=== PATIENT | male | born 1960 | race African-American/Black ===

== ENCOUNTER 2024-10-28 11:10 | Inpatient (IN) ==
--- NOTE | 2024-10-28 12:09 | DR.GENAD ---
HPI Time Seen Time Seen by Provider: 10/28/24 12:07 PCP Primary Care Physician: Dr.Angie Hunt HPI Comment HPI Comment: Patient is mentally delayed and has been having 3 days of diarrhea. Patient's risk control consultant states that he has not been urinating over the last day. Patient also has not been 1 take anything orally. Denies nausea or vomiting. Patient also has some ongoing low back pain. Complaint/Symptoms Chief Complaint:: pt's sister states that he has been having lower back pain, trouble urinating, and diarrhea for about three days now. she states that he has good appetite, and is not vomiting or having any nausea Self Treatment fo Chief Complaint: immodium yesterday and ibuprofen this morning COVID-19 Coronavirus risk:travel/contact w/high risk person: No Has patient experienced Coronavirus symptoms: No Source History Provided: Family Member Mode of Arrival Mode of Arrival: Ambulatory Timing Onset of Chief Complaint: 10/25/24 PMH PMH Past Medical History: Yes Past Medical History: Dyslipidemia Past Medical History Comment: epileptic, intellectual disability Past Surgical History: No Family History History of Family Medical Conditions: Yes Family Medical History: Cancer, [place] and Heart Failure Family Medical History Comment: bone cancer, glaucoma Social History Does patient currently use any type of tobacco product: No Have you used tobacco products in the last 12 months: No Type of Tobacco Use: None Does any household member use tobacco: No Alcohol Use: None Do you use any recreational Drugs:: No Lives With: Family Lives Where: Home Travel Risk Coronavirus risk:travel/contact w/high risk person: No Has patient experienced Coronavirus symptoms: No Infectious screening Have you had fever, night sweats or hemotysis?: No Have you traveled outside the country in the last 6 months?: No Isolation: Standard ROS Review of Systems Constitutional: No Symptoms Reported Eyes: No Symptoms Reported ENTM: No Symptoms Reported Respiratoy: No Symptoms Reported Cardiovascular: No Symptoms Reported Gastrointestinal/Abdominal: See HPI and Diarrhea; negative Abdominal Pain, Constipation, Nausea or Vomiting Genitourinary: No Symptoms Reported Neurological: No Symptoms Reported and Seizure (History of epilepsy but no recent seizures.); negative Numbness, Tingling, Weakness or Dizziness Musculoskeletal: See HPI and Back Pain Integumentary: No Symptoms Reported Hematologic/Lymphatic: No Symptoms Reported Endocrine: No Symptoms Reported Psychiatric: No Symptoms Reported All Other Systems: Reviewed and Negative PE Vital Signs Vitals: Vital Signs Temperature 98.6 F Pulse Rate 65 Respiratory Rate 18 Blood Pressure 159/81 O2 Sat by Pulse Oximetry 100 General Limitations: No Limitations General Appearance: Alert and In No Apparent Distress Head Head Exam: Normal Inspection Eyes Eye exam: Normal Appearance ENT ENT Exam: Normal Exam External Ear Exam: Normal External Inspection TM/Canal Exam: Bilateral: Normal Nose Exam: Normal Nose Exam Mouth Exam: Normal Inspection Throat Exam: Normal Inspection Neck Neck Exam: Normal Inspection Chest Chest Inspection: Normal Inspection Respiratory Respiratory Exam: Normal Lung Sounds Bilat Respiratory Exam: Bilateral: Clear to Auscultation Cardiovascular Cardiovascular Exam: Regular Rate and Normal Rhythm Abdominal Exam Abdominal Exam: Normal Inspection, Normal Bowel Sounds and Soft Extremities Extremities Exam: Normal Inspection Back Back Exam: Normal Inspection; negative (R) CVA Tenderness, (L) CVA Tenderness or Vertebral Tenderness Neurologic Neurological Exam: Alert and Oriented X3 Psychiatric Psychiatric Exam: Normal Affect and Normal Mood Skin Skin Exam: Warm, Dry, Intact and Normal Color COURSE Consultation Called: 17:25 Consultation Comments: Discussed case with Dr. Fair and he is agreeable to admission. Discussed low potassium and magnesium. We have been replacing in the ER. Patient has had 2 bowel movements of diarrhea since he has been here. [facility] Labs Reviewed 10/28/24 12:29 10/28/24 17:00 Laboratory: WBC 11.9 X10^3/uL (3.6-10.0) H 10/28/24 12:29 RBC 4.83 X10^6/uL (4.7-6.0) 10/28/24 12:29 Hgb 14.0 g/dL (13.5-18.0) 10/28/24 12:29 Hct 41.1 % (42.0-54.0) L 10/28/24 12:29 MCV 84.9 fL (80.0-100.0) 10/28/24 12:29 MCH 28.9 pg (27.0-34.0) 10/28/24 12:29 MCHC 34.1 g/dL (33.0-35.0) 10/28/24 12:29 RDW 13.9 % (11.6-16.5) 10/28/24 12:29 Plt Count 350 X10^3/uL (150.0-450.0) 10/28/24 12:29 MPV 7.1 fL (7.4-11.0) L 10/28/24 12:29 Neut % (Auto) 81.9 % (42.0-75.0) H 10/28/24 12:29 Lymph % (Auto) 8.3 % (21.0-51.0) L 10/28/24 12:29 [place] % (Auto) 9.6 % (0.0-13.0) 10/28/24 12:29 Eos % (Auto) 0.0 % (0.9-2.9) L 10/28/24 12:29 Baso % (Auto) 0.2 % (0.2-1.0) 10/28/24 12:29 Neut # (Auto) 9.8 x10^3/uL (2.2-4.8) H 10/28/24 12: Lymph # (Auto) 1.0 X10^3/uL (1.3-2.9) L 10/28/24 12: [place] # (Auto) 1.1 x10^3/uL (0.3-0.8) H 10/28/24 12:29 Eos # (Auto) 0.0 x10^3/uL (0.0-0.2) 10/28/24 12:29 Baso # (Auto) 0.0 X10^3/uL (0.0-0.1) 10/28/24 12: Absolute Nucleated RBC 0.1 /100WBC 10/28/24 12: Sodium 142 mmol/L (136-145) 10/28/24 12:29 Corrected Sodium 143 mmol/L (136-145) 10/28/24 12:29 Potassium 2.6 mmol/L (3.5-5.1) L* 10/28/24 17:00 Chloride 100 mmol/L (98-107) 10/28/24 12: Carbon Dioxide 32.1 mmol/L (21-32) H 10/28/24 12:29 BUN 5 mg/dL (7-18) L 10/28/24 12:29 Creatinine 0.85 mg/dL (0.70-1.30) 10/28/24 12:29 Est GFR (MDRD) Af Amer > 60 (>60) 10/28/24 12:29 Est GFR (MDRD) Non-Af > 60 (>60) 10/28/24 12:29 Glucose 154 mg/dL (65-99) H 10/28/24 12:29 Calcium 8.8 mg/dL (8.5-10.1) 10/28/24 12:29 Corrected Calcium 9.4 mg/dL (8.5-10.1) 10/28/24 12:29 Magnesium 1.8 mg/dL (2.0-2.9) L 10/28/24 12:29 Total Bilirubin 0.50 mg/dL (0.2-1.0) 10/28/24 12:29 AST 20 Units/L (15-37) 10/28/24 12:29 ALT 23 Units/L (12-78) 10/28/24 12:29 Alkaline Phosphatase 137 Units/L (46-116) H 10/28/24 12:29 Total Protein 8.4 g/dL (6.4-8.2) H 10/28/24 12:29 Albumin 3.2 g/dL (3.4-5.0) L 10/28/24 12:29 Globulin 5.2 g/dL (2.5-4.5) H 10/28/24 12:29 Albumin/Globulin Ratio 0.6 Ratio (1.1-2.1) L 10/28/24 12:29 Amylase 24 Units/L (25-115) L 10/28/24 12:29 Lipase 10 Units/L (16-77) L 10/28/24 12:29 Specimen Type Clean catch urine 10/28/24 14:42 Urine Color Yellow (YELLOW) 10/28/24 14:42 Urine Appearance Clear (CLEAR) 10/28/24 14:42 Urine pH 6.0 (5.0 - 8.0) 10/28/24 14:42 Ur Specific [place] 1.015 (1.000-1.030) 10/28/24 14:42 Urine Protein 1+ (NEGATIVE) 10/28/24 14:42 Urine Glucose (UA) 1+ (NEGATIVE) 10/28/24 14:42 Urine Ketones 1+ (NEGATIVE) 10/28/24 14:42 Urine Blood Negative (NEGATIVE) 10/28/24 14:42 Urine Nitrite Negative (NEGATIVE) 10/28/24 14:42 Urine Bilirubin Negative (NEGATIVE) 10/28/24 14:42 Urine Urobilinogen Normal (NORMAL) 10/28/24 14:42 Ur Leukocyte Esterase Negative (NEGATIVE) 10/28/24 14:42 Urine RBC None seen /HPF (0-3) 10/28/24 14:42 Urine WBC 3-5 /HPF (0-5) 10/28/24 14:42 Ur Squamous Epith Cells Rare /HPF (NEGATIVE) 10/28/24 14:42 Urine Bacteria Negative /HPF (NEGATIVE) 10/28/24 14:42 Urine Yeast Rare /HPF (NEGATIVE) 10/28/24 14:42 Ur Culture Indicated? No/not indicated 10/28/24 14:42 Opioid Opioid Risk Tool Age (Rajat box if 16-45): No History of Preadolescent Sexual Abuse: No Total: 0 Total Score Risk Category: Low Risk Copyright: Gomez predicting aberrant behaviors Discharge Plan Diagnosis Discharge Problem: Diarrhea, Hypokalemia, Hypomagnesemia Discharge Plan Patient Disposition: 09 ADMITTED INPATIENT Condition: Stable Prescriptions: No Action phenytoin sodium extended 100 mg capsule 1 tab PO QID simvastatin 40 mg tablet 1 tab PO QPM phenobarbital 60 mg tablet PO doxycycline monohydrate 100 mg capsule 1 cap PO BID levofloxacin 500 mg tablet 1 tab PO QDAY meclizine 25 mg tablet 25 mg PO TID PRN (Reason: dizziness or vertigo) Qty: 30 0RF Health Concerns: Post Hospitalization: new medications and changes needed to prevent readmission or further decline. Pt educated and given instructions on all concerns. Plan of Treatment: Continue with present treatment and follow up plan. Pt is to keep follow up appointment as instructed and take medications as ordered. Orders to Discharge Patient Discharge Orders: Transfer (Routine); Ordered 10/28/24 Ordered By: Iraj Candelario Follow ups/Referrals Follow ups/Referrals: JANNIE HUNT [Primary Care Provider] - 3 days Instructions Stand Alone Forms: Find Help Web Site, Post Hospital Follow Up Care
[2024-10-28] MEDS: NS 1,000 ML IV 1,000 ML IV ONE (12:34)
[2024-10-28] MEDS: MAGNESIUM SULFATE 1 GRAM/100 mL PREMIX 1 G/100 ML BAG IV ONE ×2 (12:35→17:32)
[2024-10-28 12:43] LABS: BASOPHILS % (AUTO) 0.2 % (0.2-1.0); HEMATOCRIT 41.1 % (42.0-54.0); LYMPHOCYTES % (AUTO) 8.3 % (21.0-51.0); MEAN CORPUSCULAR HEMOGLOBIN 28.9 pg (27.0-34.0); MEAN CORPUSCULAR HGB CONC 34.1 g/dL (33.0-35.0); MEAN CORPUSCULAR VOLUME 84.9 fL (80.0-100.0); MEAN PLATELET VOLUME 7.1 fL (7.4-11.0); MONOCYTES # (AUTO) 1.1 x10^3/uL (0.3-0.8); MONOCYTES % (AUTO) 9.6 % (0.0-13.0); NEUTROPHILS # (AUTO) 9.8 x10^3/uL (2.2-4.8); NEUTROPHILS % (AUTO) 81.9 % (42.0-75.0); PLATELET COUNT 350 X10^3/uL (150.0-450.0); RED BLOOD COUNT 4.83 X10^6/uL (4.7-6.0); RED CELL DISTRIBUTION WIDTH 13.9 % (11.6-16.5); WHITE BLOOD COUNT 11.9 X10^3/uL (3.6-10.0)
[2024-10-28 12:55] LABS: ALANINE AMINOTRANSFERASE 23 Units/L (12-78); ALBUMIN 3.2 g/dL (3.4-5.0); ALKALINE PHOSPHATASE 137 Units/L (46-116); AMYLASE 24 Units/L (25-115); ASPARTATE AMINO TRANSFERASE 20 Units/L (15-37); BLOOD UREA NITROGEN 5 mg/dL (7-18); CALCIUM 8.8 mg/dL (8.5-10.1); CARBON DIOXIDE 32.1 mmol/L (21-32); CHLORIDE 100 mmol/L (98-107); COR CA(FOR HYPOALB) 9.4 mg/dL (8.5-10.1); COR NA(FOR HYPERGLY) 143 mmol/L (136-145); CREATININE 0.85 mg/dL (0.70-1.30); GLUCOSE 154 mg/dL (65-99); LIPASE 10 Units/L (16-77); SODIUM 142 mmol/L (136-145); TOTAL PROTEIN 8.4 g/dL (6.4-8.2); eGFR NON BLACK RACES > 60 (>60)
[2024-10-28 12:56] LABS: POTASSIUM 2.5 mmol/L (3.5-5.1)
[2024-10-28] MEDS: K-DUR TAB 20 MEQ PO ONE ×2 (14:04→15:43)
[2024-10-28 14:49] LABS: BILIRUBIN,URINE NEGATIVE (NEGATIVE); BLOOD/HEMOGLOBIN,URINE NEGATIVE (NEGATIVE); GLUCOSE, URINE 1+ (NEGATIVE); KETONES,URINE 1+ (NEGATIVE); LEUKOCYTE ESTERASE ,URINE NEGATIVE (NEGATIVE); NITRITES,URINE NEGATIVE (NEGATIVE); PROTEIN,URINE 1+ (NEGATIVE); UROBILINOGEN,URINE NORMAL (NORMAL)
[2024-10-28 14:59] LABS: APPEARANCE,URINE CLEAR (CLEAR); BACTERIA,URINE NEGATIVE /HPF (NEGATIVE); COLOR,URINE YELLOW (YELLOW); RBC,URINE NONE SEEN /HPF (0-3); SQUAMOUS EPITHELIAL CELL,UR RARE /HPF (NEGATIVE); YEAST,URINE RARE /HPF (NEGATIVE)
--- NOTE | 2024-10-28 16:57 | EKG ---
Test Reason : low potassium Blood Pressure : */* mmHG Vent. Rate : 65 BPM Atrial Rate : 65 BPM P-R Int : 152 ms QRS Dur : 110 ms QT Int : 414 ms P-R-T Axes : 35 -51 12 degrees QTc Int : 430 ms Normal sinus rhythm Left anterior fascicular block T wave abnormality, consider anterolateral ischemia Abnormal ECG No previous ECGs available Confirmed by Arvind Frederick MD ([id number]) on 10/28/2024 6:18:50 PM Referred By: Confirmed By: Arvind Frederick MD
[2024-10-28] MEDS: POTASSIUM CHLORIDE LIQ PO ONE (17:32)
[2024-10-28] MEDS: IMODIUM CAP 2 MG PO ONE (18:06)
[2024-10-28] MEDS ORDERED: IMODIUM CAP 2 MG PO PRN (19:08)
[2024-10-28] MEDS ORDERED: CONSULT PHARMACY - POTASSIUM & MAGNESIUM XX SCH (19:08)
[2024-10-28] MEDS ORDERED: TYLENOL 325 MG TAB PO PRN (19:08)
[2024-10-28] MEDS: NS 1,000 ML IV 1,000 ML IV SCH (20:46)
[2024-10-28] MEDS: PHENOBARBITAL TAB 30 MG (32.4MG) PO SCH (20:47)
[2024-10-28] MEDS: ZOCOR TAB 40 MG PO SCH (20:47)
[2024-10-28] MEDS: DILANTIN INFATAB 50 MG PO SCH (21:40)
[2024-10-29 05:33] LABS: BASOPHILS % (AUTO) 0.1 % (0.2-1.0); HEMOGLOBIN 14.2 g/dL (13.5-18.0); LYMPHOCYTES # (AUTO) 0.6 X10^3/uL (1.3-2.9); LYMPHOCYTES % (AUTO) 3.4 % (21.0-51.0); MEAN CORPUSCULAR HEMOGLOBIN 28.9 pg (27.0-34.0); MEAN CORPUSCULAR HGB CONC 33.9 g/dL (33.0-35.0); MEAN CORPUSCULAR VOLUME 85.2 fL (80.0-100.0); MEAN PLATELET VOLUME 7.7 fL (7.4-11.0); MONOCYTES # (AUTO) 1.7 x10^3/uL (0.3-0.8); MONOCYTES % (AUTO) 9.2 % (0.0-13.0); NEUTROPHILS # (AUTO) 16.4 x10^3/uL (2.2-4.8); NEUTROPHILS % (AUTO) 87.3 % (42.0-75.0); PLATELET COUNT 342 X10^3/uL (150.0-450.0); RED BLOOD COUNT 4.93 X10^6/uL (4.7-6.0); RED CELL DISTRIBUTION WIDTH 14.3 % (11.6-16.5); WHITE BLOOD COUNT 18.8 X10^3/uL (3.6-10.0)
[2024-10-29 05:55] LABS: ALANINE AMINOTRANSFERASE 15 Units/L (12-78); ALKALINE PHOSPHATASE 127 Units/L (46-116); ASPARTATE AMINO TRANSFERASE 18 Units/L (15-37); BLOOD UREA NITROGEN 5 mg/dL (7-18); CALCIUM 8.9 mg/dL (8.5-10.1); CARBON DIOXIDE 31.3 mmol/L (21-32); CHLORIDE 101 mmol/L (98-107); COR CA(FOR HYPOALB) 9.7 mg/dL (8.5-10.1); COR NA(FOR HYPERGLY) 142 mmol/L (136-145); CREATININE 0.64 mg/dL (0.70-1.30); GLUCOSE 144 mg/dL (65-99); MAGNESIUM 2.2 mg/dL (2.0-2.9); POTASSIUM 3.2 mmol/L (3.5-5.1); SODIUM 141 mmol/L (136-145); TOTAL PROTEIN 7.8 g/dL (6.4-8.2); eGFR NON BLACK RACES > 60 (>60)
[2024-10-29] MEDS ORDERED: CONSULT PHARMACY - POTASSIUM & MAGNESIUM XX SCH (07:00)
--- NOTE | 2024-10-29 08:25 | EKG ---
Test Reason : tachycardia Blood Pressure : */* mmHG Vent. Rate : 128 BPM Atrial Rate : 128 BPM P-R Int : 148 ms QRS Dur : 92 ms QT Int : 280 ms P-R-T Axes : 34 -67 114 degrees QTc Int : 408 ms Sinus tachycardia Possible Left atrial enlargement Left axis deviation Cannot rule out Anterior infarct , age undetermined Abnormal ECG When compared with ECG of 28-OCT-2024 16:54, Vent. rate has increased BY [address] now depressed in Inferior leads Nonspecific T wave abnormality, improved in Inferior leads Nonspecific T wave abnormality has replaced inverted T waves in Lateral leads Confirmed by Yefri Davis ([id number]) on 10/29/2024 6:30:08 PM Referred By: Confirmed By: Yefri Davis
--- NOTE | 2024-10-29 08:26 | EKG ---
Test Reason : abnormal telemetry Blood Pressure : */* mmHG Vent. Rate : 123 BPM Atrial Rate : 123 BPM P-R Int : 148 ms QRS Dur : 92 ms QT Int : 312 ms P-R-T Axes : 32 -66 81 degrees QTc Int : 446 ms Sinus tachycardia Possible Left atrial enlargement Left axis deviation Anterior infarct , age undetermined Abnormal ECG When compared with ECG of 28-OCT-2024 16:54, Vent. rate has increased BY 58 BPM Nonspecific T wave abnormality no longer evident in Inferior leads Confirmed by Yefri Davis ([id number]) on 10/29/2024 6:30:22 PM Referred By: Confirmed By: Yefri Davis
[2024-10-29] MEDS: NS 250 ML IV 250 ML IV ONE (09:11)
[2024-10-29] MEDS: MAGNESIUM SULFATE 1 GRAM/100 mL PREMIX 1 G/100 ML BAG IV ONE (09:11)
[2024-10-29] MEDS: IMODIUM CAP 2 MG PO ONE (09:11)
[2024-10-29] MEDS: ROCEPHIN VIAL 1 GRAM 1 G in NS 100 ML IV 100 ML IV SCH (09:11)
[2024-10-29] MEDS: K-DUR TAB 20 MEQ PO ONE (09:11)
[2024-10-29] MEDS: DILANTIN CAP 100 MG EXT REL PO SCH ×2 (09:12→20:34)
[2024-10-29] MEDS: K-DUR TAB 20 MEQ PO SCH (09:13)
[2024-10-29] MEDS: VSL#3 PROBIOTIC CAP 112.5 B PO SCH (09:13)
[2024-10-29] MEDS: OMNIPAQUE 350 mg/mL 100 mL BTL 100 ML ONE (09:35)
[2024-10-29] MEDS: NS 1,000 ML IV 1,000 ML IV ONE ×2 (10:42→19:25)
[2024-10-29] MEDS: VANCOMYCIN HCL 1 G in D5W 250 ML IV 250 ML IV SCH (10:54)
[2024-10-29] MEDS ORDERED: CONSULT PHARMACY - ANTIBIOTIC XX SCH (11:00)
[2024-10-29] MEDS: ZOSYN VIAL 3.375 GRAMS 3.375 G in NS 100 ML IV 100 ML IV SCH (12:03)
[2024-10-29] MEDS: NS 250 ML IV 25 ML IV PRN (12:16)
--- NOTE | 2024-10-29 14:35 | CT ---
EXAM: CT ABDOMEN AND PELVIS WITH CONTRAST HISTORY: ELEVATED WBC, LEFT CVA TENDERNESS; COMPARISON: None. TECHNIQUE: Axial CT images were obtained through the abdomen and pelvis after the intravenous administration of contrast. Coronal reformatted images were included. Informed written consent was obtained prior to contrast administration. All CT scans at this facility use dose modulation, iterative reconstruction, and/or weight based dosi ng when appropriate to reduce radiation dose to as low as reasonably achievable. FINDINGS: LOWER THORAX: Areas of bibasilar airspace disease are present. ABDOMEN: LIVER: Within normal limits. GALLBLADDER: Within normal limits. SPLEEN: Within normal limits. PANCREAS: Within normal limits. KIDNEYS: Within normal limits. ADRENAL GLANDS: Within normal limits. GI TRACT: Colon is abnormal demonstrating severe distention. Sigmoid colon is completely decompresse d. Configuration of the sigmoid colon suggest the presence of sigmoid volvulus. LYMPH NODES: No abnormally enlarged nodes. VESSELS: Within normal limits. PERITONEUM / RETROPERITONEUM: No free gas. PELVIS: BLADDER: Within normal limits. GENITALS: Within normal limits. BONES: Within normal limits. IMPRESSION: Colonic obstruction. Severe distention of the entirety of the colon noted with the exception of the sigmoid colon which is decompressed. Swirling in the adjacent mesentery is consistent with a sigmoid volvulus. THIS IS AN ELECTRONICALLY VERIFIED FINAL REPORT 10/29/2024 2:32 PM - Electronically signed by Giovanny Hillman MD
--- NOTE | 2024-10-29 15:06 | DR.H&P ---
H&P History & Physical for Day of: H&P Date: 10/29/24 Chief Complaint Chief Complaint: Back pain History of Present Illness History of Present Illness: Patient presented to the ER from home with worsening back pain, diarrhea, and weakness. In the ER he was found to be dehydrated with electrolyte abnormalities. He was admitted for rehydration. Overnight, his telemetry showed a variety of tachyarrhythmias. Patient was as ymptomatic each time. A.m. labs show worsening leukocytosis with improved BOBBY. Patient continues to report left CVA-region tenderness. Reports his diarrhea is improved. Sister and patient report his belly seems distended but less tender. No nausea or vomiting. ROS: 12 point ROS negative except per above. PE: WD, WN male in no acute distress. Head NCAT. Hearing intact conversation. Extraocular notes grossly normal. Heart regular rate and rhythm. Lungs are clear bilaterally. Belly is distended but nontender with hypoactive bowel sounds and tympanic to percussion. Does have left CVA tenderness that is not worse with percussion. No edema of the extremities. Mood is blunted affect is guarded. Past Medical History Past Medical History: Dyslipidemia Family History Family Medical History: Cancer, [place] and Heart Failure Social History Does patient currently use any type of tobacco product: No Have you used tobacco products in the last 12 months: No Type of Tobacco Use: None Does any household member use tobacco: No Alcohol Use: None Drug Use: None Medications Home Medications: Home Medications Medication Instructions Recorded Confirmed Type phenobarbital 60 mg tablet 1 tab PO BID 11/29/22 10/28/24 History phenytoin sodium extended 100 mg 2 tab PO QAM 11/29/22 10/28/24 History capsule simvastatin 40 mg tablet 1 tab PO QPM 11/29/22 10/28/24 History phenytoin sodium extended 100 mg 100 mg PO HS 10/28/24 10/28/24 History capsule Allergies Allergies Allergy/AdvReac Type Severity Reaction Status Date / Time codeine AdvReac Verified 11/25/22 09:12 Labs 10/29/24 04:35 10/29/24 04:35 Labs: Laboratory WBC 18.8 X10^3/uL (3.6-10.0) H 10/29/24 04:35 RBC 4.93 X10^6/uL (4.7-6.0) 10/29/24 04:35 Hgb 14.2 g/dL (13.5-18.0) 10/29/24 04:35 Hct 42.0 % (42.0-54.0) 10/29/24 04:35 MCV 85.2 fL (80.0-100.0) 10/29/24 04:35 MCH 28.9 pg (27.0-34.0) 10/29/24 04:35 MCHC 33.9 g/dL (33.0-35.0) 10/29/24 04:35 RDW 14.3 % (11.6-16.5) 10/29/24 04:35 Plt Count 342 X10^3/uL (150.0-450.0) 10/29/24 04:35 MPV 7.7 fL (7.4-11.0) 10/29/24 04:35 Neut % (Auto) 87.3 % (42.0-75.0) H 10/29/24 04:35 Lymph % (Auto) 3.4 % (21.0-51.0) L 10/29/24 04:35 [place] % (Auto) 9.2 % (0.0-13.0) 10/29/24 04:35 Eos % (Auto) 0.0 % (0.9-2.9) L 10/29/24 04:35 Baso % (Auto) 0.1 % (0.2-1.0) L 10/29/24 04:35 Neut # (Auto) 16.4 x10^3/uL (2.2-4.8) H 10/29/24 04:35 Lymph # (Auto) 0.6 X10^3/uL (1.3-2.9) L 10/29/24 04:35 [place] # (Auto) 1.7 x10^3/uL (0.3-0.8) H 10/29/24 04:35 Eos # (Auto) 0.0 x10^3/uL (0.0-0.2) 10/29/24 04:35 Baso # (Auto) 0.0 X10^3/uL (0.0-0.1) 10/29/24 04:35 Absolute Nucleated RBC 0.0 /100WBC 10/29/24 04:35 Sodium 141 mmol/L (136-145) 10/29/24 04:35 Corrected Sodium 142 mmol/L (136-145) 10/29/24 04:35 Potassium 3.2 mmol/L (3.5-5.1) L 10/29/24 04:35 Chloride 101 mmol/L (98-107) 10/29/24 04:35 Carbon Dioxide 31.3 mmol/L (21-32) 10/29/24 04:35 BUN 5 mg/dL (7-18) L 10/29/24 04:35 Creatinine 0.64 mg/dL (0.70-1.30) L 10/29/24 04:35 Est GFR (MDRD) Af Amer > 60 (>60) 10/29/24 04:35 Est GFR (MDRD) Non-Af > 60 (>60) 10/29/24 04:35 Glucose 144 mg/dL (65-99) H 10/29/24 04:35 Calcium 8.9 mg/dL (8.5-10.1) 10/29/24 04:35 Corrected Calcium 9.7 mg/dL (8.5-10.1) 10/29/24 04:35 Magnesium 2.2 mg/dL (2.0-2.9) 10/29/24 04:35 Total Bilirubin 1.30 mg/dL (0.2-1.0) H 10/29/24 04:35 AST 18 Units/L (15-37) 10/29/24 04:35 ALT 15 Units/L (12-78) 10/29/24 04:35 Alkaline Phosphatase 127 Units/L (46-116) H 10/29/24 04:35 Total Protein 7.8 g/dL (6.4-8.2) 10/29/24 04:35 Albumin 3.0 g/dL (3.4-5.0) L 10/29/24 04:35 Globulin 4.8 g/dL (2.5-4.5) H 10/29/24 04:35 Albumin/Globulin Ratio 0.6 Ratio (1.1-2.1) L 10/29/24 04:35 Amylase 24 Units/L (25-115) L 10/28/24 12:29 Lipase 10 Units/L (16-77) L 10/28/24 12:29 Specimen Type Clean catch urine 10/28/24 14:42 Urine Color Yellow (YELLOW) 10/28/24 14:42 Urine Appearance Clear (CLEAR) 10/28/24 14:42 Urine pH 6.0 (5.0 - 8.0) 10/28/24 14:42 Ur Specific [place] 1.015 (1.000-1.030) 10/28/24 14:42 Urine Protein 1+ (NEGATIVE) 10/28/24 14:42 Urine Glucose (UA) 1+ (NEGATIVE) 10/28/24 14:42 Urine Ketones 1+ (NEGATIVE) 10/28/24 14:42 Urine Blood Negative (NEGATIVE) 10/28/24 14:42 Urine Nitrite Negative (NEGATIVE) 10/28/24 14:42 Urine Bilirubin Negative (NEGATIVE) 10/28/24 14:42 Urine Urobilinogen Normal (NORMAL) 10/28/24 14:42 Ur Leukocyte Esterase Negative (NEGATIVE) 10/28/24 14:42 Urine RBC None seen /HPF (0-3) 10/28/24 14:42 Urine WBC 3-5 /HPF (0-5) 10/28/24 14:42 Ur Squamous Epith Cells Rare /HPF (NEGATIVE) 10/28/24 14:42 Urine Bacteria Negative /HPF (NEGATIVE) 10/28/24 14:42 Urine Yeast Rare /HPF (NEGATIVE) 10/28/24 14:42 Ur Culture Indicated? No/not indicated 10/28/24 14:42 Physical Exam Vital Signs: Vital Signs Temperature 98.3 F Temperature 98.2 F Pulse Rate [Right] 86 Pulse Rate [Right] 61 Respiratory Rate 18 Respiratory Rate 20 Blood Pressure [Right Arm] 141/76 Blood Pressure [Right Arm] 160/77 O2 Sat by Pulse Oximetry 98 O2 Sat by Pulse Oximetry 98 Assessment/Plan (1) Severe sepsis: Narrative Support Text: Suspect abdominal source. Has tachycardia, leukocytosis, BOBBY, and lactic acidosis. Start Vanco and Zosyn today. Status: Acute (2) Costovertebral angle tenderness: Narrative Support Text: CT abdomen and pelvis with p.o. and IV contrast today. Urine looked clear so I doubt it is a kidney stone or UTI Status: Acute (3) Acute kidney failure: Qualifiers: Acute renal failure type: unspecified Qualified Code(s): N17.9 - Acute kidney failure, unspecified Narrative Support Text: Improving. Continue IV fluids. Status: Acute (4) Diarrhea: Qualifiers: Diarrhea type: presumed infectious Qualified Code(s): R19.7 - Diarrhea, unspecified Narrative Support Text: Suspect infectious but uncertain etiology. Seems to be improving. Continue hydration Status: Acute (5) Hypokalemia: Narrative Support Text: Due to diarrhea with BOBBY. Replace as needed. Status: Acute (6) Hypomagnesemia: Narrative Support Text: See above. Status: Acute
[2024-10-29] MEDS ORDERED: K-RIDER 10 MEQ/100 ML WATER 10 MEQ/100 ML BAG IV ONE (20:00)
[2024-10-29] MEDS: NS 1,000 ML IV 1,000 ML IV SCH (20:25)
[2024-10-29] MEDS: HIBICLENS WASH EXT ONE (21:26)
[2024-10-29] MEDS: K-RIDER 10 MEQ/100 ML WATER 10 MEQ/100 ML BAG IV ONE (21:30)
--- NOTE | 2024-10-29 21:38 | DR.CONSULT ---
CONSULT Consultation for Day of: Date: 10/29/24 Chief Complaint Chief Complaint: Abdominal pain Allergies Allergies Allergy/AdvReac Type Severity Reaction Status Date / Time codeine AdvReac Verified 11/25/22 09:12 History of Present Illness History of Present Illness: 64 yo male with historyn of developmental delay and presented to ER with diarrhea and back and abdominal pain. Admitted to medicine service. Noted to have hypokalemia and abdominal distention and dehydration. Had CT of abdomen and pelvis with findings consistent with distende colon with sigmoid volvulus and obstruction. History obtained from his sister. History of seizures . Elevatd lactic acid . Past Medical History Past Medical History: Dyslipidemia Family History Family Medical History: Cancer, [place] and Heart Failure Social History Does patient currently use any type of tobacco product: No Have you used tobacco products in the last 12 months: No Type of Tobacco Use: None Does any household member use tobacco: No Alcohol Use: None Drug Use: None Medications Home Medications: codeine Adverse Reaction (Verified 11/25/22 09:12) CONTINUE taking the following medications phenytoin sodium extended 100 mg capsule 100 mg PO HS 10/28/24 [History] Review of Systems Constitutional: See HPI Eyes: No Symptoms Reported ENT: No Symptoms Reported Respiratory: No Symptoms Reported Cardiovascular: See HPI Gastrointestinal: See HPI Genitourinary: No Symptoms Reported Musculoskeletal: No Symptoms Reported Skin: No Symptoms Reported Neurological: No Symptoms Reported Physical Exam Vital Signs: Vital Signs Temperature 99.3 F Temperature 98.3 F Pulse Rate [Right] 130 Pulse Rate [Right] 126 Respiratory Rate 20 Respiratory Rate 19 Blood Pressure [Right Arm] 109/72 Blood Pressure [Right Arm] 120/81 O2 Sat by Pulse Oximetry 95 O2 Sat by Pulse Oximetry 98 Oriented: Person; negative Time or Place Eyes: Normal Ear: Normal Nose: Normal Throat: Normal Respiratory: Clear Throughout Cardiovascular: Tachycardia : Normal Auscultation: Bowel Sounds: Decreased Palpation: Other (distended) Tenderness: Normal Skin: Normal Musculoskeletal: Normal Psychiatric: Other (does not give a history, ) Mood Description: Anxious Affect: Depressed and Quiet Speech Pattern: Unclear Plan (1) Severe sepsis: Status: Acute (2) Costovertebral angle tenderness: Status: Acute (3) Acute kidney failure: Status: Acute Qualifiers: Acute renal failure type: unspecified Qualified Code(s): N17.9 - Acute kidney failure, unspecified (4) Diarrhea: Status: Acute Qualifiers: Diarrhea type: presumed infectious Qualified Code(s): R19.7 - Diarrhea, unspecified (5) Hypokalemia: Status: Acute (6) Hypomagnesemia: Status: Acute (7) Sigmoid volvulus: Status: Acute Plan: NG tube , IV hydration plan lapaoscopy and sigmoid resection and end colostomy.
--- NOTE | 2024-10-29 22:18 | RAD ---
EXAM: CHEST, 1 VIEW HISTORY: ng tube placement @ 2150; COMPARISON: No relevant prior studies available. TECHNIQUE: AP supine projection, 2 images FINDINGS: Esophagogastric tube tip is in the body of the stomach. Nonspecific moderate to severe gaseous distention of the imaged bowel. IMPRESSION: Esophagogastric tube tip is in the body of the stomach. THIS IS AN ELECTRONICALLY VERIFIED FINAL REPORT 10/29/2024 10:14 PM - Electronically signed by Ian Aguilar MD
--- NOTE | 2024-10-29 23:29 | RAD ---
PROCEDURE: Chest X-ray 1 View.HISTORY: NG tube placement.TECHNIQUE: AP portable view.COMPARISON: 11/23/2022.TECHNICAL QUALITY: Satisfactory.FINDINGS:NG tube tip projected over the body of the stomach in good position. Probable right internal jugular central venous line with the tip near the superior cavoatrial junction.Normal-sized heart.Mediastinum and hilar regions show no masses or lymphadenopathy.Normal central vascularity.No pulmonary consolidation, masses, pleural fluid, or pneumothorax.No acute bony abnormality.Dilated bowel loops with air visualized upper abdomen could be related to ileus or obstruction.IMPRESSION:1. No evidence of active cardiopulmonary disease.2. Good NG tube placement.3. Dilated bowel loops visualized upper abdomen could be related to ileus or obstruction.THIS IS AN ELECTRONICALLY VERIFIED FINAL [id number]/29/2024 11:25 PM - Electronically signed by Christopher Garcia MD
[2024-10-30] MEDS: K-RIDER 10 MEQ/100 ML WATER 10 MEQ/100 ML BAG IV ONE ×3 (00:07→06:03)
[2024-10-30 06:02] LABS: ALANINE AMINOTRANSFERASE 18 Units/L (12-78); ALBUMIN 2.5 g/dL (3.4-5.0); ALKALINE PHOSPHATASE 101 Units/L (46-116); ASPARTATE AMINO TRANSFERASE 25 Units/L (15-37); BLOOD UREA NITROGEN 11 mg/dL (7-18); CALCIUM 8.5 mg/dL (8.5-10.1); CARBON DIOXIDE 23.8 mmol/L (21-32); CHLORIDE 99 mmol/L (98-107); COR CA(FOR HYPOALB) 9.7 mg/dL (8.5-10.1); COR NA(FOR HYPERGLY) 133 mmol/L (136-145); CREATININE 0.89 mg/dL (0.70-1.30); GLUCOSE 154 mg/dL (65-99); POTASSIUM 4.1 mmol/L (3.5-5.1); SODIUM 132 mmol/L (136-145); TOTAL PROTEIN 7.3 g/dL (6.4-8.2); eGFR NON BLACK RACES > 60 (>60)
[2024-10-30 06:07] LABS: BASOPHILS % (AUTO) 0.1 % (0.2-1.0); HEMATOCRIT 42.7 % (42.0-54.0); HEMOGLOBIN 14.2 g/dL (13.5-18.0); LYMPHOCYTES # (AUTO) 1.1 X10^3/uL (1.3-2.9); LYMPHOCYTES % (AUTO) 4.4 % (21.0-51.0); MEAN CORPUSCULAR HEMOGLOBIN 28.8 pg (27.0-34.0); MEAN CORPUSCULAR HGB CONC 33.2 g/dL (33.0-35.0); MEAN CORPUSCULAR VOLUME 86.6 fL (80.0-100.0); MONOCYTES # (AUTO) 2.2 x10^3/uL (0.3-0.8); MONOCYTES % (AUTO) 8.9 % (0.0-13.0); NEUTROPHILS # (AUTO) 21.6 x10^3/uL (2.2-4.8); NEUTROPHILS % (AUTO) 86.6 % (42.0-75.0); PLATELET COUNT 338 X10^3/uL (150.0-450.0); RED BLOOD COUNT 4.93 X10^6/uL (4.7-6.0); RED CELL DISTRIBUTION WIDTH 14.4 % (11.6-16.5)
[2024-10-30 06:37] LABS: BAND NEUTROPHILS % 10 % (0-10); PLATELET MORPHOLOGY COMMENT NORMAL (NORMAL)
[2024-10-30 08:05] VITALS: BMI 21.9
--- NOTE | 2024-10-30 08:16 | NOTE.SOAP ---
Soap Note Note for Day of Date of Exam: 10/30/24 Subjective Data Subjective Data: Patient seen for a.m. rounds with sister at bedside. Surgery was consulted last night and plans to take him to the OR later today. CT of the abdomen and pelvis showed large bowel obstruction with sigmoid volvulus. Lactic is down slightly this morning but white count is higher. He remains tachycardic and temp is elevated. Objective Data Objective Data: WD, WN male in NAD. Head NCAT. Hearing intact conversation. EOMI. Heart regular tachycardia. Lungs are clear. Bowel sounds absent, belly more di stended, mildly tender diffusely. Assessment Assessment: 1. Colonic obstruction with sigmoid volvulus- acute. Pending surgery later today. 2. Severe sepsis due to above- acute. Continue Vanc/Zosyn for now. IVFs. Lactate down slightly this AM. 3. Seizure disorder- chronic. Continue home meds when able.
[2024-10-30] MEDS: NOZIN NASAL SANITIZER TP ONE (09:24)
[2024-10-30] MEDS: LR 1,000 ML IV 1,000 ML IV ONE (09:24)
[2024-10-30] MEDS: NS 100 ML IV 100 ML ONE (09:58)
[2024-10-30] MEDS: ZOFRAN INJ 4 MG VIAL ONE (09:58)
[2024-10-30] MEDS: VERSED ONE (09:58)
[2024-10-30] MEDS: TORADOL 30 MG VIAL ONE (09:58)
[2024-10-30] MEDS: ZEMURON 100 MG VIAL ONE (09:58)
[2024-10-30] MEDS ORDERED: XYLOCAINE 2 % (PLAIN) ONE (09:58)
[2024-10-30] MEDS ORDERED: ULTANE GAS IN ONE (09:58)
[2024-10-30] MEDS: DIPRIVAN VIAL 20 ML ONE (09:58)
[2024-10-30] MEDS: FENTANYL VIAL INJ 250 mcg ONE (09:58)
[2024-10-30] MEDS: PEPCID 20 MG VIAL ONE (09:58)
[2024-10-30] MEDS: ANCEF VIAL 1 GRAM ONE (09:58)
[2024-10-30] MEDS: OFIRMEV IV 1000 MG VIAL 1,000 MG/100 ML VIAL IV ONE (09:58)
[2024-10-30] MEDS: NEO-SYNEPHRINE INJ ONE (10:16)
[2024-10-30] MEDS: BRIDION ONE (11:20)
[2024-10-30] MEDS: NS 1,000 ML IV 1,000 ML IV ONE ×2 (12:19→23:25)
--- NOTE | 2024-10-30 12:29 | OR.IMMED ---
IMMEDIATE POST-OP NOTE Immediate Post-Op Note Date of surgery/procedure: 10/30/24 Pre-Op Diagnosis: sigmoid volvulous with obstruction Post-Op Diagnosis: same with gangrenous , large tortuous sigmoid colon Procedure: laparotomy , sigmoid colon resection, end colostomy and [id number] pouch Description of Procedure: dictated Surgeon/Music Pastor: Haily Findings: as above Estimated Blood Loss: < 200 cc Complications: none Progress Notes: extubated and taken to PACU in stable condition, to CCU for post op care
[2024-10-30] MEDS: DILAUDID INJ ONE (13:02)
[2024-10-30] MEDS: LR 1,000 ML IV 1,000 ML IV SCH (14:01)
--- NOTE | 2024-10-30 19:02 | DR.OPNOTE ---
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 General endotracheal anesthesia was induced. The entire abdomen prepped and draped in sterile fashion. Timeout for the procedure obtained. 5 millimeter incision was made above the umbilicus in the midline and a 5 millimeter optical trocar used to enter the abdominal cavity. The abdomen insuflated to 15 mm of mercury with carbon dioxide. On viewing the abdomen there was too much distended bowel to safely operate therefore we decided to convert to an open procedure. The laparoscope removed and a low midline incision made from just above the umbilicsu to the pubic tubercle made with a number of 10 blade knife. Incision extended through the midline fascia with electrocautery opening the peritoneum with Metenzbaum scissors. The patient had distended bowel with obvious large tortuous sigmoid colon with volvulus and gangrenouis sigmoid colon with no perforation. A pursestring suture of 2-0 silk placed in the sigmoid colon and through this we placed a suction apparatus to deflate all the distended bowel to help us operate more safely. The pursestring was tied into position. With sharp dissection the sigmoid colon was rotated back to its usual anatomic position. The colon divided above peritoneal reflection with the NILE stapler . The mesentery of the sigmoid colon divided between clamps and tied with 2-0 silk suture ligatures. Finally the proximal colon at the mid transverse colon, which was normal in appearance, was divided with a NILE stapler and the specimen removed. NG tube position confirmed. The white line of T[place] along the transverse colon and the splwenic flexure was taken down sharply mobilizing the colon towards the midline. Rest of the colon inspected and was normal. Small bowel was normal. Liver and spleen were normal. The abdomen irrigated with saline and suctioned free. A colostomy site was selected along the left side of the abdomen lateral to the rectus sheath and a circular portion of skin removed with a # 10 blade knife . Fat removed with electrocautery and a cruiciate incision placed through the external oblique fascia and through this we made the colostomy opening. The bowel was brought through this opening and secured to the peritoneum with interrupted 2-0 sik sutures. The abdomen irrigated again. The fascia then closed with running looped number 1 PDS suture and the skin closed the skin [place]. The staple line of the: the colon was removed with electrocautery and the colon was applied full thickness to the subdermal area of the skin with interrupted 4-0 Vicryl sutures. Colostomy appliance applied. Patient taken to the PACU after extubation. Type of Anesthesia: General Anesthetic w/ETT Findings: as above Type of Fluids Used:: Lactated Ringers Total Amount of Fluid Infused:: 2500cc Urine output: 300 cc EBL: 200 cc Cultures: cultures obtained peritoneal cavity Complications:: none Needle/Sponge Count:: correct Disposition/Condition: Pt. tolerated procedure without difficulty. Extubated and taken to PACU in stable condition.
[2024-10-30] MEDS: PHARMACY COMMENT IV NR (20:00)
[2024-10-30 20:50] LABS: CREATININE 0.8 mg/dL (0.70-1.30); VANCOMYCIN,TROUGH 4.1 ug/mL (15-20)
[2024-10-30] MEDS ORDERED: NS 1,000 ML IV 1,000 ML ONE (23:20)
[2024-10-30] MEDS ORDERED: OFIRMEV IV 1000 MG VIAL 1,000 MG/100 ML VIAL IV PRN (23:32)
[2024-10-31 06:05] LABS: BASOPHILS % (AUTO) 0.2 % (0.2-1.0); HEMATOCRIT 34.9 % (42.0-54.0); HEMOGLOBIN 11.9 g/dL (13.5-18.0); LYMPHOCYTES # (AUTO) 1.2 X10^3/uL (1.3-2.9); LYMPHOCYTES % (AUTO) 11.2 % (21.0-51.0); MEAN CORPUSCULAR HEMOGLOBIN 29.4 pg (27.0-34.0); MEAN CORPUSCULAR HGB CONC 34.1 g/dL (33.0-35.0); MEAN CORPUSCULAR VOLUME 86.3 fL (80.0-100.0); MONOCYTES # (AUTO) 0.8 x10^3/uL (0.3-0.8); MONOCYTES % (AUTO) 7.6 % (0.0-13.0); NEUTROPHILS # (AUTO) 8.6 x10^3/uL (2.2-4.8); PLATELET COUNT 248 X10^3/uL (150.0-450.0); RED BLOOD COUNT 4.05 X10^6/uL (4.7-6.0); WHITE BLOOD COUNT 10.7 X10^3/uL (3.6-10.0)
[2024-10-31 06:20] LABS: CHLORIDE 105 mmol/L (98-107); POTASSIUM 3.9 mmol/L (3.5-5.1); SODIUM 139 mmol/L (136-145)
[2024-10-31 06:21] LABS: BLOOD UREA NITROGEN 12 mg/dL (7-18); CALCIUM 7.8 mg/dL (8.5-10.1); CARBON DIOXIDE 26.9 mmol/L (21-32); CREATININE 0.89 mg/dL (0.70-1.30); GLUCOSE 88 mg/dL (65-99); eGFR NON BLACK RACES > 60 (>60)
--- NOTE | 2024-10-31 06:34 | RAD ---
EXAM:Portable chestHISTORY:Preop bowel obstructionCOMPARISON:10/29/2024FINDINGS: position of the stomach. Hypoinflation accentuates the heart size. It is still likely enlarged. No congestive heart failure is noted. No acute alveolar infiltrates or pleural effusions are identified. Bony thorax is unremarkable.IMPRESSION:Mild cardiomegaly without congestive heart failureLungs hypoinflated but clearTHIS IS AN ELECTRONICALLY VERIFIED FINAL [id number]/31/2024 6:31 AM - Electronically signed by Wolf Billings MD
--- NOTE | 2024-10-31 08:23 | NOTE.SOAP ---
Soap Note Note for Day of Date of Exam: 10/31/24 Subjective Data Subjective Data: Patient seen for a.m. rounds with sister and nurse at bedside. Did have a sigmoid resection yesterday with colostomy. NG tube still in place with drainage. Patient denies acute complaint today. Nurse reports she has not heard bowel sounds this morning. Ostomy with output. White count down. Still tachycardic. Blood pressure soft but stable. Mildly anemic this morning. Objective Data Objective Data: WD, WN male in NAD. NG tube in place. Head NCAT. Extraocular movement normal. Hearing intact conversation. Heart regular rate and rhythm. Breathing is shallow but lungs are clear. Bowel sounds absent with surgical dressing over midline incision. Colostomy with output. No edema of his extremities. 2+ DP pulses. Assessment Assessment: 1. Large bowel obstruction with rectal volvulus, s/p sigmoid resection and colostomy. Continue NGT and NPO status. Per surgery. Stop Vanc/Zosyn. 2. Seizure disorder, chronic. Switch to IV meds. 3. Acute, mild anemia. Monitor.
[2024-10-31] MEDS ORDERED: VANCOMYCIN IV *PREMIX 1.25 G/250 ML BAG 1.25 G/250 ML PIGGYBACK IV SCH (09:00)
[2024-10-31] MEDS ORDERED: PHENOBARBITAL SODIUM INJ 65 MG VIAL IVP SCH (09:00)
[2024-10-31] MEDS: DILANTIN INJ 100 MG VIAL IVP SCH ×2 (10:05→21:37)
[2024-10-31] MEDS: LOVENOX INJ 40 MG SYR SC SCH (10:06)
[2024-10-31] MEDS: PHENOBARBITAL SODIUM INJ 65 MG VIAL IVP SCH (10:06)
[2024-10-31] MEDS: PROTONIX INJ 40 MG VIAL IVP SCH (10:06)
--- NOTE | 2024-10-31 22:14 | NOTE.SOAP ---
Soap Note Note for Day of Date of Exam: 10/31/24 Subjective Data Subjective Data: POD # 1 after sigmoid resection for sigmoid volvulous with gangrenous sigmoid colon. Tachycardia resolved, stable vitals . Objective Data Temperature: 98.6 F Pulse Rate: 96 Respiratory Rate: 24 Blood Pressure: 114/59 O2 Sat by Pulse Oximetry: 100 Objective Data: Abdomen soft and not distended , ostomy functioning , Good urine output . Incision claean and dry. Hgb=11.9, WBC=10.7, Assessment Assessment: S/p sigmoid colectomy and doing well. Plan Plan: D/C NGtube , sips of clear liquids
[2024-11-01] MEDS: DILAUDID INJ IVP PRN (05:19)
[2024-11-01 06:02] LABS: BASOPHILS % (AUTO) 0.1 % (0.2-1.0); EOSINOPHILS # (AUTO) 0.1 x10^3/uL (0.0-0.2); EOSINOPHILS % (AUTO) 0.7 % (0.9-2.9); HEMATOCRIT 29.7 % (42.0-54.0); HEMOGLOBIN 10.2 g/dL (13.5-18.0); LYMPHOCYTES # (AUTO) 1.3 X10^3/uL (1.3-2.9); MEAN CORPUSCULAR HEMOGLOBIN 29.3 pg (27.0-34.0); MEAN CORPUSCULAR HGB CONC 34.2 g/dL (33.0-35.0); MEAN CORPUSCULAR VOLUME 85.8 fL (80.0-100.0); MEAN PLATELET VOLUME 7.7 fL (7.4-11.0); MONOCYTES # (AUTO) 1.1 x10^3/uL (0.3-0.8); MONOCYTES % (AUTO) 9.8 % (0.0-13.0); NEUTROPHILS # (AUTO) 8.5 x10^3/uL (2.2-4.8); NEUTROPHILS % (AUTO) 77.4 % (42.0-75.0); PLATELET COUNT 277 X10^3/uL (150.0-450.0); RED BLOOD COUNT 3.47 X10^6/uL (4.7-6.0); RED CELL DISTRIBUTION WIDTH 14.1 % (11.6-16.5)
[2024-11-01 06:23] LABS: ALANINE AMINOTRANSFERASE 17 Units/L (12-78); ALBUMIN 1.3 g/dL (3.4-5.0); ALKALINE PHOSPHATASE 76 Units/L (46-116); ASPARTATE AMINO TRANSFERASE 32 Units/L (15-37); BLOOD UREA NITROGEN 9 mg/dL (7-18); CALCIUM 7.9 mg/dL (8.5-10.1); COR CA(FOR HYPOALB) 10.1 mg/dL (8.5-10.1); CREATININE 0.76 mg/dL (0.70-1.30); GLUCOSE 85 mg/dL (65-99); POTASSIUM 3.4 mmol/L (3.5-5.1); SODIUM 140 mmol/L (136-145); TOTAL PROTEIN 5.3 g/dL (6.4-8.2); eGFR NON BLACK RACES > 60 (>60)
[2024-11-01 06:36] LABS: CARBON DIOXIDE 26.8 mmol/L (21-32); CHLORIDE 105 mmol/L (98-107)
[2024-11-01] MEDS ORDERED: CONSULT PHARMACY - POTASSIUM & MAGNESIUM XX SCH (07:00)
--- NOTE | 2024-11-01 09:36 | NOTE.SOAP ---
Soap Note Note for Day of Date of Exam: 11/01/24 Subjective Data Subjective Data: Patient seen in ICU with nurse and sister at bedside. NG tube removed yesterday and able to tolerate p.o. meds. Rested comfortably last night. No acute complaints today. Hemoglobin and WBC stable. Blood pressure doing better overall. Heart rate better as well. Colostomy still with output. Objective Data Objective Data: WD, WN male in NAD. Heart regular rate and rhythm. Lungs are clear with good respiratory effort. Bowel sounds are hypoactive, but present today. Colostomy with output. Belly slightly tender, appropriately. No edema of his feet or arms. Assessment Assessment: 1. Status post sigmoid resection with colostomy placement secondary to rectal volvulus with large bowel obstruction, acute. Resolving. Continue per surgery. 2. Seizure disorder, chronic. Continue home medications. Agree with switch to p.o.
[2024-11-01] MEDS: K-RIDER 10 MEQ/100 ML WATER 10 MEQ/100 ML BAG IV SCH (10:01)
[2024-11-01] MEDS: THORAZINE TAB 25 MG PO SCH (10:01)
--- NOTE | 2024-11-01 10:11 | NOTE.SOAP ---
Soap Note Note for Day of Date of Exam: 11/01/24 Subjective Data Subjective Data: POD # 2 after sigmoid colon resection with end colostomy duw to sigmoid volvulus with gangtrenous sigmoid colon Objective Data Temperature: 98.4 F Pulse Rate: 84 Respiratory Rate: 15 Blood Pressure: 101/53 O2 Sat by Pulse Oximetry: 100 Objective Data: Abdomen soft and not distended . Tolerated NG out but does have some hiccups . colstomy functioning Assessment Assessment: sigmoid volvulus with gangrenous sigmoid colon. Plan Plan: D/C Jensen, regular diet plus protein shakes , Nutrition assessment , start all po meds ( anti- seizure and Somvastin)
[2024-11-01] MEDS: DILANTIN CAP 100 MG EXT REL PO ONE (11:19)
--- NOTE | 2024-11-01 13:58 | EKG ---
Test Reason : v-tach Blood Pressure : */* mmHG Vent. Rate : 95 BPM Atrial Rate : 394 BPM P-R Int : * ms QRS Dur : 88 ms QT Int : 362 ms P-R-T Axes : * -44 84 degrees QTc Int : 454 ms extreme artifact-hard to interpret much Sinus rhythm Confirmed by Arvind Frederick MD ([id number]) on 11/06/2024 12:45:04 PM Referred By: Confirmed By: Arvind Frederick MD
[2024-11-01] MEDS: CARDIZEM INJ 50 MG VIAL IVP ONE ×2 (14:10→15:35)
[2024-11-01] MEDS ORDERED: ZOFRAN INJ 4 MG VIAL IVP PRN (14:33)
--- NOTE | 2024-11-01 14:46 | EKG ---
Test Reason : post med Blood Pressure : */* mmHG Vent. Rate : 107 BPM Atrial Rate : 125 BPM P-R Int : 162 ms QRS Dur : 96 ms QT Int : 394 ms P-R-T Axes : 69 -51 75 degrees QTc Int : 525 ms baseline artifact better than last ekg but still makes interpretation difficult Normal sinus rhythm Left axis deviation Inferior infarct (cited on or before 29-OCT-2024) Anterior infarct (cited on or before 29-OCT-2024) Prolonged QT ACUTE CT / STEMI Consider acute inferior CT Abnormal ECG When compared with ECG of 01-NOV-2024 13:35, (Unconfirmed) last ekg not interpretable Confirmed by Arvind Frederick MD ([id number]) on 11/06/2024 12:52:36 PM Referred By: Confirmed By: Arvind Frederick MD
[2024-11-01] MEDS: NITROSTAT SL ONE (15:08)
[2024-11-01] MEDS: CARDIZEM INJ 125 MG VIAL 125 MG in NS 100 ML IV 100 ML IV PRN (15:40)
[2024-11-01] MEDS: NEXTERONE IV 150 MG PREMIX* 150 MG/100 ML BAG IV ONE ×2 (16:06→18:50)
[2024-11-01] MEDS ORDERED: NEXTERONE IV 360 MG PREMIX* 360 MG/200 ML BAG IV PRN ×2 (16:36→23:20)
[2024-11-01] MEDS: LR 1,000 ML IV 1,000 ML IV SCH (16:42)
[2024-11-01] MEDS: NEXTERONE IV 360 MG PREMIX* 360 MG/200 ML BAG IV PRN (16:43)
[2024-11-01] MEDS: MAGNESIUM SULFATE 1 GRAM/100 mL PREMIX 1 G/100 ML BAG IV SCH (16:47)
[2024-11-01 18:06] VITALS: TEMP 99.4
[2024-11-01 19:22] VITALS: BP 134/76; PULSE 134; RESP 24; O2SAT 99
[2024-11-01] MEDS ORDERED: PHARMACY COMMENT IV NR (20:00)
[2024-11-01] MEDS ORDERED: PHENOBARBITAL TAB 30 MG (32.4MG) PO SCH ×2 (21:00)
[2024-11-01] MEDS ORDERED: ZOCOR TAB 10 MG PO SCH (21:00)
[2024-11-01] MEDS ORDERED: DILANTIN CAP 100 MG EXT REL PO SCH (21:00)
[2024-11-02] MEDS ORDERED: JUVEN PO SCH (09:00)
[2024-11-02] MEDS ORDERED: DILANTIN CAP 100 MG EXT REL PO SCH (09:00)
--- NOTE | 2024-11-02 09:05 | PCM.DCPLAN ---
DISCHARGE SUMMARY Admission Date Date of Admission: 10/28/24 Discharge Date Discharge Date: 11/01/24 Admission Diagnoses (1) Severe sepsis: Status: Acute (2) Costovertebral angle tenderness: Status: Acute (3) Acute kidney failure: Status: Acute (4) Diarrhea: Status: Acute (5) Hypokalemia: Status: Acute (6) Hypomagnesemia: Status: Acute (7) Sigmoid volvulus: Status: Acute (8) Polymorphic ventricular tachycardia: Status: Acute Discharge Medications Discharge Medications: Home Medication List phenytoin sodium extended 100 mg capsule 100 mg PO HS 10/28/24 [History] Prescriptions: Hospital Course Latest Lab Results: Laboratory Last Values WBC 11.0 X10^3/uL (3.6-10.0) H 11/01/24 04:54 RBC 3.47 X10^6/uL (4.7-6.0) L 11/01/24 04:54 Hgb 10.2 g/dL (13.5-18.0) L 11/01/24 04:54 Hct 29.7 % (42.0-54.0) L 11/01/24 04:54 MCV 85.8 fL (80.0-100.0) 11/01/24 04:54 MCH 29.3 pg (27.0-34.0) 11/01/24 04:54 MCHC 34.2 g/dL (33.0-35.0) 11/01/24 04:54 RDW 14.1 % (11.6-16.5) 11/01/24 04:54 Plt Count 277 X10^3/uL (150.0-450.0) 11/01/24 04:54 Plt Count Comment Adequate (ADEQUATE) 10/30/24 05:15 MPV 7.7 fL (7.4-11.0) 11/01/24 04:54 Neut % (Auto) 77.4 % (42.0-75.0) H 11/01/24 04:54 Lymph % (Auto) 12.0 % (21.0-51.0) L 11/01/24 04:54 [place] % (Auto) 9.8 % (0.0-13.0) 11/01/24 04:54 Eos % (Auto) 0.7 % (0.9-2.9) L 11/01/24 04:54 Baso % (Auto) 0.1 % (0.2-1.0) L 11/01/24 04:54 Neut # (Auto) 8.5 x10^3/uL (2.2-4.8) H 11/01/24 04:54 Lymph # (Auto) 1.3 X10^3/uL (1.3-2.9) 11/01/24 04:54 [place] # (Auto) 1.1 x10^3/uL (0.3-0.8) H 11/01/24 04:54 Eos # (Auto) 0.1 x10^3/uL (0.0-0.2) 11/01/24 04:54 Baso # (Auto) 0.0 X10^3/uL (0.0-0.1) 11/01/24 04:54 Absolute Nucleated RBC 0.0 /100WBC 11/01/24 04:54 Total Counted 100 10/30/24 05:15 Neutrophils % (Manual) 73 % (39-76) 10/30/24 05:15 Band Neutrophils % 10 % (0-10) 10/30/24 05:15 Lymphocytes % (Manual) 12 % (13-43) L 10/30/24 05:15 Monocytes % (Manual) 5 % (4-9) 10/30/24 05:15 Plt Morphology Comment Normal (NORMAL) 10/30/24 05:15 RBC Morphology Normal (NORMAL) 10/30/24 05:15 Sodium 140 mmol/L (136-145) 11/01/24 04:54 Corrected Sodium TNP 11/01/24 04:54 Potassium 3.4 mmol/L (3.5-5.1) L 11/01/24 04:54 Chloride 105 mmol/L (98-107) 11/01/24 04:54 Carbon Dioxide 26.8 mmol/L (21-32) 11/01/24 04:54 BUN 9 mg/dL (7-18) 11/01/24 04:54 Creatinine 0.76 mg/dL (0.70-1.30) 11/01/24 04:54 Est GFR (MDRD) Af Amer > 60 (>60) 11/01/24 04:54 Est GFR (MDRD) Non-Af > 60 (>60) 11/01/24 04:54 Glucose 85 mg/dL (65-99) 11/01/24 04:54 Lactic Acid 2.2 mmol/L (0.4-2.0) H 10/30/24 20:25 Calcium 7.9 mg/dL (8.5-10.1) L 11/01/24 04:54 Corrected Calcium 10.1 mg/dL (8.5-10.1) 11/01/24 04:54 Magnesium 2.0 mg/dL (2.0-2.9) 11/01/24 04:54 Total Bilirubin 0.70 mg/dL (0.2-1.0) 11/01/24 04:54 AST 32 Units/L (15-37) 11/01/24 04:54 ALT 17 Units/L (12-78) 11/01/24 04:54 Alkaline Phosphatase 76 Units/L (46-116) 11/01/24 04:54 Troponin I High Sens 9.4 ng/L (4.0-60.0) 11/01/24 14:33 Total Protein 5.3 g/dL (6.4-8.2) L 11/01/24 04:54 Albumin 1.3 g/dL (3.4-5.0) L 11/01/24 04:54 Globulin 4.0 g/dL (2.5-4.5) 11/01/24 04:54 Albumin/Globulin Ratio 0.3 Ratio (1.1-2.1) L 11/01/24 04:54 Amylase 24 Units/L (25-115) L 10/28/24 12:29 Lipase 10 Units/L (16-77) L 10/28/24 12:29 Specimen Type Clean catch urine 10/28/24 14:42 Urine Color Yellow (YELLOW) 10/28/24 14:42 Urine Appearance Clear (CLEAR) 10/28/24 14:42 Urine pH 6.0 (5.0 - 8.0) 10/28/24 14:42 Ur Specific [place] 1.015 (1.000-1.030) 10/28/24 14:42 Urine Protein 1+ (NEGATIVE) 10/28/24 14:42 Urine Glucose (UA) 1+ (NEGATIVE) 10/28/24 14:42 Urine Ketones 1+ (NEGATIVE) 10/28/24 14:42 Urine Blood Negative (NEGATIVE) 10/28/24 14:42 Urine Nitrite Negative (NEGATIVE) 10/28/24 14:42 Urine Bilirubin Negative (NEGATIVE) 10/28/24 14:42 Urine Urobilinogen Normal (NORMAL) 10/28/24 14:42 Ur Leukocyte Esterase Negative (NEGATIVE) 10/28/24 14:42 Urine RBC None seen /HPF (0-3) 10/28/24 14:42 Urine WBC 3-5 /HPF (0-5) 10/28/24 14:42 Ur Squamous Epith Cells Rare /HPF (NEGATIVE) 10/28/24 14:42 Urine Bacteria Negative /HPF (NEGATIVE) 10/28/24 14:42 Urine Yeast Rare /HPF (NEGATIVE) 10/28/24 14:42 Ur Culture Indicated? No/not indicated 10/28/24 14:42 Vancomycin Trough 4.1 ug/mL (15-20) L 10/30/24 20:25 Phenytoin 7.4 ug/mL (10-20) L 11/01/24 04:54 Tissue Pathology See comment. 10/30/24 11:00 Hospital Course: Patiently originally admitted with concerns for BOBBY, electrolyte derangement, and viral gastroenteritis. After admission his white count worsened and abdomen was more distended. Lactic acid was also found to be elevated and a CT with contrast of his abdomen/pelvis was ordered showing a large bowel obstruction with volvulus. Surgery was consulted and took him to the OR the next day. He did have a sigmoid resection with colostomy placement. Patient did well and on postop day 1 had his NG tube removed and started taking p.o. meds and a clear liquid diet. On postop day 2, in the afternoon, he started to develop an abnormal rhythm on telemetry. EKG showed a very disorganized, wide-complex tachycardia. At various points through the admission he had become tachycardic, but those were more before surgery. He was given a test dose of IV diltiazem w ith improvement but concerns about multiple ST elevations in noncontiguous leads. Troponin was ordered and negative. Very quickly he returned into a disorganized rhythm. Amiodarone drip was started and transfer was initiated. It was decided after consultation with [facility] critical care telehealth, he needed to go to a facility with cardiology and surgery. We agreed. Family requested [facility]. Transfer was set up. I discussed with the hospitalist and they accepted. Transferred initiated with patient in stable condition on an amiodarone drip with continued, but improved, tachycardia. Patient will need to follow-up with surgery and have a cardiology evaluation.
== END 2024-11-01 19:22 | disposition short-term general hospital (02) | DRG 330 ==
LOC: MED/SURG 11:10 → ER 11:10 → MED/SURG 19:00 → ICU 10-30 11:50
PROVIDERS: ADMIT Family Medicine; ATTEND Family Medicine
DX: G40.802 Other epilepsy, not intractable, without status epilepticus; E86.0 Dehydration; N17.8 Other acute kidney failure; R10.84 Generalized abdominal pain; R79.89 Other specified abnormal findings of blood chemistry; I47.29 Other ventricular tachycardia; K56.2 Volvulus; R94.31 Abnormal electrocardiogram [ECG] [EKG]; E83.42 Hypomagnesemia; R26.89 Other abnormalities of gait and mobility; R19.7 Diarrhea, unspecified; E87.6 Hypokalemia; K56.690 Other partial intestinal obstruction; M54.59 Other low back pain

== ENCOUNTER 2024-11-12 15:53 | Inpatient (IN) ==
[2024-11-12] MEDS ORDERED: NS 250 ML IV 25 ML IV PRN (18:45)
[2024-11-12] MEDS ORDERED: TYLENOL 325 MG TAB PO PRN (19:58)
[2024-11-12] MEDS ORDERED: TYLENOL SUPP 650 MG PR PRN ×2 (20:02→20:22)
[2024-11-12] MEDS: NS 500 ML IV 500 ML IV ONE (20:26)
[2024-11-12] MEDS: ZOSYN VIAL 3.375 GRAMS 3.375 G in NS 100 ML IV 100 ML IV SCH (20:26)
[2024-11-12] MEDS: TYLENOL 325 MG TAB PO PRN (20:51)
[2024-11-12] MEDS ORDERED: CEREBYX INJ IVP SCH (21:00)
[2024-11-12] MEDS: VANCOMYCIN HCL ONE (22:35)
[2024-11-12] MEDS: VANCOMYCIN IV *PREMIX 1 G/200 ML BAG 1 G/200 ML PIGGYBACK IV SCH (22:35)
[2024-11-12] MEDS: NS 250 ML IV 250 ML IV ONE (22:54)
[2024-11-12] MEDS: CEREBYX INJ 100 MG in NS 50 ML IV 50 ML IV SCH (23:20)
[2024-11-12] MEDS: D5 1/2 NS 1,000 ML 1,000 ML with POTASSIUM CHLORIDE INJ 40 MEQ VIAL 40 MEQ IV SCH (23:23)
[2024-11-13 06:03] LABS: BASOPHILS # (AUTO) 0.1 X10^3/uL (0.0-0.1); BASOPHILS % (AUTO) 0.4 % (0.2-1.0); EOSINOPHILS # (AUTO) 0.1 x10^3/uL (0.0-0.2); EOSINOPHILS % (AUTO) 0.4 % (0.9-2.9); HEMATOCRIT 32.2 % (42.0-54.0); HEMOGLOBIN 10.5 g/dL (13.5-18.0); LYMPHOCYTES # (AUTO) 2.1 X10^3/uL (1.3-2.9); LYMPHOCYTES % (AUTO) 7.5 % (21.0-51.0); MEAN CORPUSCULAR HEMOGLOBIN 28.3 pg (27.0-34.0); MEAN CORPUSCULAR HGB CONC 32.6 g/dL (33.0-35.0); MEAN CORPUSCULAR VOLUME 86.8 fL (80.0-100.0); MEAN PLATELET VOLUME 7.7 fL (7.4-11.0); MONOCYTES % (AUTO) 7.2 % (0.0-13.0); NEUTROPHILS # (AUTO) 23.7 x10^3/uL (2.2-4.8); NEUTROPHILS % (AUTO) 84.5 % (42.0-75.0); PLATELET COUNT 347 X10^3/uL (150.0-450.0); RED CELL DISTRIBUTION WIDTH 14.4 % (11.6-16.5)
[2024-11-13 06:11] LABS: ALANINE AMINOTRANSFERASE 60 Units/L (12-78); ALBUMIN 1.1 g/dL (3.4-5.0); ALKALINE PHOSPHATASE 183 Units/L (46-116); ASPARTATE AMINO TRANSFERASE 170 Units/L (15-37); BLOOD UREA NITROGEN 22 mg/dL (7-18); CALCIUM 7.2 mg/dL (8.5-10.1); CARBON DIOXIDE 21.3 mmol/L (21-32); CHLORIDE 114 mmol/L (98-107); COR CA(FOR HYPOALB) 9.5 mg/dL (8.5-10.1); CREATININE 1.21 mg/dL (0.70-1.30); GLUCOSE 105 mg/dL (65-99); POTASSIUM 3.7 mmol/L (3.5-5.1); SODIUM 149 mmol/L (136-145); TOTAL PROTEIN 6.5 g/dL (6.4-8.2); eGFR NON BLACK RACES > 60 (>60)
[2024-11-13] MEDS ORDERED: PHARMACY CONSULT - TPN XX SCH (07:00)
[2024-11-13 07:02] LABS: BAND NEUTROPHILS % 2 % (0-10)
[2024-11-13 07:03] LABS: PLATELET MORPHOLOGY COMMENT NORMAL (NORMAL)
[2024-11-13] MEDS ORDERED: VANCOMYCIN IV *PREMIX 1 G/200 ML BAG 1 G/200 ML PIGGYBACK IV SCH (09:00)
[2024-11-13] MEDS ORDERED: CEREBYX INJ IVP SCH (09:00)
[2024-11-13] MEDS: CEREBYX INJ 200 MG in NS 50 ML IV 50 ML IV SCH (09:12)
[2024-11-13] MEDS: D5 1/2 NS 1,000 ML 1,000 ML IV SCH (09:15)
--- NOTE | 2024-11-13 09:23 | DR.H&P ---
H&P History & Physical for Day of: H&P Date: 11/13/24 Chief Complaint Chief Complaint: Postoperative ileus History of Present Illness History of Present Illness: Patient readmitted to this facility after transfer to outside hospital for cardiology evaluation. Admitted with a large bowel obstruction with rectosigmoid volvulus. Underwent sigmoid resection with colostomy placement. Started to develop abnormal rhythms on telemetry and EKG with concern for V. tach. Transferred to [facility] for evaluation by cardiology. Cardiology cleared the patient while in the facility. NG tube was removed the day prior to transfer here. Patient had a large volume emesis with aspiration pneumonia on arrival at OSH. He had a prolonged course in the ICU and PCU due to the aspiration pneumonia. ID, GI, surgery, cardiology were all consulted on the patient. At the time of transfer back to our facility, he was still dealing with a postoperative ileus, had an NG tube, was leukocytotic/febrile/tachycardic on Vanco and Unasyn, and had been evaluated by palliative care for potential hospice admission. He also was evaluated for LTAC versus SNF placement, but family wanted to keep him in the [facility] due to travel concerns. Overnight, patient was febrile. NG tube was in place. Surgery advised D5 with half-normal saline. He currently reports that he has a dry mouth and would like to sip on some water this morning. He is still leukocytotic and tachycardic. Nurses deny any other overnight events. He denies any belly soreness. He does feel tired and weak. 12 point ROS otherwise negative. PE: Thin, mildly dehydrated male in no acute distress. Appears acutely ill. Heart with regular tachycardia. Lungs are clear with shallow respirations. Bowel sounds are absent but belly is nontender nondistended. Mood and affect are appropriate given the situation. Skin turgor is decreased but color is appropriate. Extraocular movements grossly normal. Hearing intact conversation. Head NCAT. NG tube in place. Past Medical History Past Medical History: Dyslipidemia Family History Family Medical History: Cancer, [place] and Heart Failure Medications Home Medications: Home Medications Medication Instructions Recorded Confirmed Type phenobarbital 60 mg tablet 1 tab PO BID 11/29/22 11/12/24 History phenytoin sodium extended 100 mg 100 mg PO QAM 11/29/22 11/12/24 History capsule simvastatin 40 mg tablet 1 tab PO QPM 11/29/22 11/12/24 History Allergies Allergies Allergy/AdvReac Type Severity Reaction Status Date / Time codeine AdvReac Verified 11/25/22 09:12 Labs 11/13/24 05:40 11/13/24 05:40 Labs: Laboratory Sodium 149 mmol/L (136-145) H 11/13/24 05:40 Corrected Sodium TNP 11/13/24 05:40 Potassium 3.7 mmol/L (3.5-5.1) 11/13/24 05:40 Chloride 114 mmol/L (98-107) H 11/13/24 05:40 Carbon Dioxide 21.3 mmol/L (21-32) 11/13/24 05:40 BUN 22 mg/dL (7-18) H 11/13/24 05:40 Creatinine 1.21 mg/dL (0.70-1.30) 11/13/24 05:40 Est GFR (MDRD) Af Amer > 60 (>60) 11/13/24 05:40 Est GFR (MDRD) Non-Af > 60 (>60) 11/13/24 05:40 Glucose 105 mg/dL (65-99) H 11/13/24 05:40 Calcium 7.2 mg/dL (8.5-10.1) L 11/13/24 05:40 Corrected Calcium 9.5 mg/dL (8.5-10.1) 11/13/24 05:40 Total Bilirubin 1.30 mg/dL (0.2-1.0) H 11/13/24 05:40 AST 170 Units/L (15-37) H 11/13/24 05:40 ALT 60 Units/L (12-78) 11/13/24 05:40 Alkaline Phosphatase 183 Units/L (46-116) H 11/13/24 05:40 Total Protein 6.5 g/dL (6.4-8.2) 11/13/24 05:40 Albumin 1.1 g/dL (3.4-5.0) L 11/13/24 05:40 Globulin 5.4 g/dL (2.5-4.5) H 11/13/24 05:40 Albumin/Globulin Ratio 0.2 Ratio (1.1-2.1) L 11/13/24 05:40 Physical Exam Vital Signs: Vital Signs Temperature 99.3 F Temperature 100.1 F Pulse Rate [Brachial] 115 Pulse Rate [Brachial] 117 Respiratory Rate 17 Respiratory Rate 18 Blood Pressure [Right Arm] 111/66 Blood Pressure [Right Arm] 112/63 O2 Sat by Pulse Oximetry 90 O2 Sat by Pulse Oximetry 93 Assessment/Plan (1) Bilateral pneumonia: Qualifiers: Pneumonia type: aspiration pneumonia Aspiration pneumonia type: due to vomit Lung location: lower lobe of lung Qualified Code(s): J69.0 - Pneumonitis due to inhalation of food and vomit Narrative Support Text: Continue bank and using [employer] now with it. Status: Acute (2) Hypernatremia: Narrative Support Text: Increased rate of D5 half-normal saline. Status: Acute (3) Sepsis: Qualifiers: Sepsis type: sepsis due to unspecified organism Sepsis acute organ dysfunction status: without acute organ dysfunction Qualified Code(s): A41.9 - Sepsis, unspecified organism Narrative Support Text: Secondary to aspiration pneumonia. Status: Acute (4) Ileus following gastrointestinal surgery: Narrative Support Text: Per surgery. I would like to try to ambulate patient to help with his debilitation and also to encourage gastric motility. Patient is at high risk for readmission even if he goes to an LTAC or SNF. Palliative care is a decent option. Likely in for a prolonged stay Status: Acute
--- NOTE | 2024-11-13 10:01 | RAD ---
EXAM: Abdomen series with AP chest five views HISTORY: Postop ileus COMPARISON: CT abdomen 10/29/2024 FINDINGS: AP chest: Interval increase in diffuse bilateral airspace pulmonary disease without large pleural ef fusion. Abdomen: Supine/upright views demonstrate moderate gaseous dilatation of stomach, small and large bow el. Surgical clips are noted in the abdominal wall midline. No free air is demonstrated. IMPRESSION: 1. Significant intestinal distention consistent with ileus or partial SBO. No perforation identifi ed. 2. Increasing bilateral pulmonary infiltrates consistent with pneumonia and suspect basal atelectasi s as well. THIS IS AN ELECTRONICALLY VERIFIED FINAL REPORT 11/13/2024 9:58 AM - Electronically signed by Willian Santana MD
[2024-11-13 10:43] VITALS: BMI 23.5
[2024-11-13] MEDS: CLINIMIX 5 %/20 % 1,000 ML with MVI INJ (ADULT) 10 ML, MAGNESIUM SULFATE 50% INJ VIAL 1... IV SCH (10:45)
[2024-11-13] MEDS: DRUG FILTER EXTENSION SET ONE (10:48)
[2024-11-13] MEDS: VANCOMYCIN HCL 1 G in D5W 250 ML IV 250 ML IV SCH (10:48)
[2024-11-13] MEDS ORDERED: DUONEB 0.5 MG/3 MG (3 mL) NEB SCH (13:00)
[2024-11-13] MEDS: XOPENEX 1.25 MG/3 ML NEBULE NEB SCH (13:23)
[2024-11-13 13:25] VITALS: TEMP 97.7; O2SAT 92
[2024-11-13 16:48] VITALS: BP 89/31; PULSE 0; RESP 0
[2024-11-13] MEDS ORDERED: PULMICORT NEB TX 0.5 MG NEB SCH (21:00)
[2024-11-13] MEDS ORDERED: LIPID EMULSION IV SCH (21:00)
--- NOTE | 2024-11-14 08:28 | DR.DECEASE ---
FORM Date of Admission Date of Admission: 11/12/24 Discharge Diagnosis (1) Bilateral pneumonia: Problems (Updated 11/13/24 @ 09:22 by Jose Miguel Fair MD) Sepsis (Acute) A41.9 Bilateral pneumonia (Acute) J18.9 Hypernatremia (Acute) E87.0 Ileus following gastrointestinal surgery (Acute) K91.89, K56.7 Polymorphic ventricular tachycardia (Acute) I47.29 Sigmoid volvulus (Acute) K56.2 Acute kidney failure (Acute) N17.9 Costovertebral angle tenderness (Acute) M54.9 Severe sepsis (Acute) A41.9, R65.20 Acute UTI (Acute) N39.0 Acute head trauma (Acute) S09.90XA Vertigo (Acute) R42 Diarrhea (Acute) R19.7 Hypokalemia (Acute) E87.6 Hypomagnesemia (Acute) E83.42 (2) Hypernatremia: Problems (Updated 11/13/24 @ 09:22 by Jose Miguel Fair MD) Sepsis (Acute) A41.9 Bilateral pneumonia (Acute) J18.9 Hypernatremia (Acute) E87.0 Ileus following gastrointestinal surgery (Acute) K91.89, K56.7 Polymorphic ventricular tachycardia (Acute) I47.29 Sigmoid volvulus (Acute) K56.2 Acute kidney failure (Acute) N17.9 Costovertebral angle tenderness (Acute) M54.9 Severe sepsis (Acute) A41.9, R65.20 Acute UTI (Acute) N39.0 Acute head trauma (Acute) S09.90XA Vertigo (Acute) R42 Diarrhea (Acute) R19.7 Hypokalemia (Acute) E87.6 Hypomagnesemia (Acute) E83.42 (3) Sepsis: Problems (Updated 11/13/24 @ 09:22 by Jose Miguel Fair MD) Sepsis (Acute) A41.9 Bilateral pneumonia (Acute) J18.9 Hypernatremia (Acute) E87.0 Ileus following gastrointestinal surgery (Acute) K91.89, K56.7 Polymorphic ventricular tachycardia (Acute) I47.29 Sigmoid volvulus (Acute) K56.2 Acute kidney failure (Acute) N17.9 Costovertebral angle tenderness (Acute) M54.9 Severe sepsis (Acute) A41.9, R65.20 Acute UTI (Acute) N39.0 Acute head trauma (Acute) S09.90XA Vertigo (Acute) R42 Diarrhea (Acute) R19.7 Hypokalemia (Acute) E87.6 Hypomagnesemia (Acute) E83.42 (4) Ileus following gastrointestinal surgery: Problems (Updated 11/13/24 @ 09:22 by Jose Miguel Fair MD) Sepsis (Acute) A41.9 Bilateral pneumonia (Acute) J18.9 Hypernatremia (Acute) E87.0 Ileus following gastrointestinal surgery (Acute) K91.89, K56.7 Polymorphic ventricular tachycardia (Acute) I47.29 Sigmoid volvulus (Acute) K56.2 Acute kidney failure (Acute) N17.9 Costovertebral angle tenderness (Acute) M54.9 Severe sepsis (Acute) A41.9, R65.20 Acute UTI (Acute) N39.0 Acute head trauma (Acute) S09.90XA Vertigo (Acute) R42 Diarrhea (Acute) R19.7 Hypokalemia (Acute) E87.6 Hypomagnesemia (Acute) E83.42 Problems (Updated 11/13/24 @ 09:22 by Jose Miguel Fair MD) Sepsis (Acute) A41.9 Bilateral pneumonia (Acute) J18.9 Hypernatremia (Acute) E87.0 Ileus following gastrointestinal surgery (Acute) K91.89, K56.7 Polymorphic ventricular tachycardia (Acute) I47.29 Sigmoid volvulus (Acute) K56.2 Acute kidney failure (Acute) N17.9 Costovertebral angle tenderness (Acute) M54.9 Severe sepsis (Acute) A41.9, R65.20 Acute UTI (Acute) N39.0 Acute head trauma (Acute) S09.90XA Vertigo (Acute) R42 Diarrhea (Acute) R19.7 Hypokalemia (Acute) E87.6 Hypomagnesemia (Acute) E83.42 Labs 11/13/24 05:40 11/13/24 05:40 Hospital Course Hospital Course: Patient transferred back from [facility] after clearance by cardiology. During his time over there he was septic from an aspiration pneumonia. Day of discharge she did develop some fevers while remaining tachycardic and leukocytotic. He continued to fevers, leukocytosis, and tachycardia on transfer here. Sodium was also elevated at 149 the morning of his . It was 150 at transferring facility. He was asking for water throughout the day and handling sips. Staff and went to go get him another cup of water when he went into asystole. ER provider responded to the code along with staff. After approximately 30 minutes of compression, medications, and respiratory support the patient . Expiration Expiration Date: 11/13/24 Expiration Time: 14:37 Time Pronounced: 14:37 Pronounced by: Dr. Candelario Preliminary Cause of : Cardiopulmonary arrest due to multiorgan failure secondary to severe sepsis due to aspiration pneumonia and recent small bowel obstruction with volvulus.
[2024-11-14] MEDS ORDERED: PHARMACY COMMENT IV ONE (08:30)
--- NOTE | 2024-11-14 13:13 | DR.CONSULT ---
CONSULT Consultation for Day of: Date: 11/12/24 Chief Complaint Chief Complaint: ileus following sigmoid colon resection for volvulus with ischemic sigmoid colon Allergies Allergies Allergy/AdvReac Type Severity Reaction Status Date / Time codeine AdvReac Verified 11/25/22 09:12 History of Present Illness History of Present Illness: This is a 64 year old male with developmental delay who was seen recently with sigmoid colon volvulus with obstruction of the colon and at abdominal exploration discovered have a gangrenous sigmoid color inquiring resection and end colostomy with Griffith pouch . Post op he did well but had evidence of persistent ventricular tachycardia and was transferred to the Cardiology service in [place], [place]. There he was treated and they felt that the arrhythmia was an artifact. He has since had his NG tube remove but has had a persistant ileus . CT scan shows no obvious abscess in the abdomen but does show evidence of possible bilateral lowee lobe pneumonia and he has been running a fever. NG tube has been removed but CT scan does show thickening of the esophagus. Currently he has hypernatremia hypokalemia He has been on TP but that has been discontinued at the time of transfer. He is admitted for for further evaluation and continued treatment . He is currently febrile . Past Medical History Past Medical History: Dyslipidemia and Seizures Family History Family Medical History: Cancer, SD and Heart Failure Social History Does patient currently use any type of tobacco product: No Have you used tobacco products in the last 12 months: No Medications Home Medications: codeine Adverse Reaction (Verified 11/25/22 09:12) phenobarbital Dilantin simvastin Review of Systems Constitutional: See HPI Eyes: No Symptoms Reported ENT: No Symptoms Reported Respiratory: No Symptoms Reported Cardiovascular: See HPI Gastrointestinal: See HPI Genitourinary: No Symptoms Reported Musculoskeletal: No Symptoms Reported Skin: No Symptoms Reported Neurological: No Symptoms Reported Physical Exam Vital Signs: Vital Signs Temperature 101.4 F Temperature 101.7 F Pulse Rate [Brachial] 116 Pulse Rate [Brachial] 137 Respiratory Rate 22 Respiratory Rate 23 Respiratory Rate 18 Blood Pressure [Right Arm] 125/60 Blood Pressure [Right Arm] 129/78 O2 Sat by Pulse Oximetry 95 O2 Sat by Pulse Oximetry 91 Oriented: Not Oriented and Unable to test Eyes: Normal Ear: Normal Nose: Normal Throat: Normal Respiratory: RLL Rhonchi and LLL Rhonchi Cardiovascular: Tachycardia : Normal Auscultation: Bowel Sounds: Decreased Palpation: Other (not distended, not tender) Tenderness: Normal and Moderate Skin: Wound (midline incision covered with silver dressing ) Psychiatric: Other (see above ) Plan (1) Sigmoid volvulus: Status: Acute Plan: colostomy pink, waiting for ileus to clear (2) Polymorphic ventricular tachycardia: Status: Acute Plan: see above, appears to be artifact, tachycardic now most likely due to infection (3) Hypokalemia: Status: Acute Plan: replace and mponitor (4) Ileus following gastrointestinal surgery: Status: Acute Narrative Support Text: correct electrolytes and treat pneumonia Plan: treat underlying pneumonia and electrolyte abnormalities (5) Hypernatremia: Status: Acute Narrative Support Text: as above (6) Bilateral pneumonia: Status: Acute Narrative Support Text: IV antibiotics
== END 2024-11-13 18:20 | disposition expired | DRG 871 ==
LOC: MED/SURG 18:01
PROVIDERS: ADMIT Family Medicine; ATTEND Family Medicine
DX: E87.0 Hyperosmolality and hypernatremia; Z93.3 Colostomy status; J69.0 Pneumonitis due to inhalation of food and vomit; E78.5 Hyperlipidemia, unspecified; K56.2 Volvulus; J18.8 Other pneumonia, unspecified organism; Z03.818 Encounter for observation for suspected exposure to other biological agents ruled out; I47.29 Other ventricular tachycardia; B96.29 Other Escherichia coli [E. coli] as the cause of diseases classified elsewhere; A41.89 Other specified sepsis; E87.6 Hypokalemia; E86.0 Dehydration; K91.89 Other postprocedural complications and disorders of digestive system